=== PATIENT | male | born 1990 | race Two or more races ===

== ENCOUNTER 2019-11-01 23:10 | Emergency (ER) | payer SELFPAY ==
[~2019-11-01] VITALS: Ht 165.1 cm; Wt 81.6 kg
[2019-11-01 23:21] VITALS: BP 121/53; Ht 165.1 cm; Wt 81.6 kg
== END 2019-11-02 06:29 | disposition left against medical advice (07) ==
LOC: ED 23:10
DX: Z53.21 Procedure and treatment not carried out due to patient leaving prior to being seen by health care provider (principal)